=== PATIENT | male | born 1995 | race Two or more races ===

== ENCOUNTER 2021-06-05 14:51 | Emergency (ER) | payer OTHER ==
[~2021-06-05] VITALS: Ht 170.2 cm; Wt 72.6 kg
[2021-06-05 17:51] VITALS: BP 140/88
[2021-06-05] MEDS ORDERED: ULTRAM50 MG PO (17:51)
== END 2021-06-05 17:59 | disposition home or self-care (01) ==
LOC: FSED 14:58
DX: R10.9 Unspecified abdominal pain (principal); N20.0 Calculus of kidney
CPT/HCPCS: 74176; 80048; 80076; 81003; 85025; 99284